=== PATIENT | male | born 1985 | race Caucasian/White ===

== ENCOUNTER 2017-05-29 08:58 | Emergency (ER) | payer OTHER, BC ==
[2017-05-29 09:18] VITALS: BP 130/60
--- NOTE | 2017-05-29 09:26 | EDM.PDOC ---
ED HPI GENERAL MEDICAL PROBLEM - General Chief Complaint: Laceration Stated Complaint: LEFT ARM, CUT , WORK[employer] Time Seen by Provider: 05/29/17 09:22 Source of Information: Reports: Patient History Limitations: Reports: No Limitations - History of Present Illness INITIAL COMMENTS - FREE TEXT/NARRATIVE: 32 yo male presents with laceration to left inner arm with knife at work. Bleeding controlled. Sensation intact. Onset: Today, Sudden Duration: Constant Location: Reports: Upper Extremity, Left Quality: Reports: Ache Severity: Mild Improves with: Reports: None Worsens with: Reports: None Left Arm Pain Score (Numeric/FACES): 3 - Related Data Allergies Allergy/AdvReac Type Severity Reaction Status Date / Time No Known Allergies Allergy Verified 05/29/17 09:18 Home Meds: Home Meds Albuterol [IJD: Ventolin HFA] 2 puff IH Q4H PRN 12/31/16 [History] Pantoprazole [ProTONIX] 40 mg PO DAILY 12/31/16 [History] Cetirizine [ZyrTEC] 10 mg PO DAILY 01/01/17 [History] Budesonide [Rhinocort Allergy] 2 spray EMIR DAILY 05/29/17 [History] ED ROS GENERAL - Review of Systems Review Of Systems: ROS reveals no pertinent complaints other than HPI. ED EXAM, SKIN/RASH Exam: See Below Exam Limited By: No Limitations General Appearance: Alert, WD/WN, No Apparent Distress Nose: Normal Inspection, Normal Mucosa, No Blood Throat/Mouth: Normal Inspection, Normal Lips, Normal Teeth, Normal Gums, Normal Oropharynx, Normal Voice, No Airway Compromise Head: Atraumatic, Normocephalic Neck: Normal Inspection, Supple, Non-Tender, Full Range of Motion Respiratory/Chest: No Respiratory Distress, Lungs Clear, Normal Breath Sounds, No Accessory Muscle Use, Chest Non-Tender Cardiovascular: Normal Peripheral Pulses, Regular Rate, Rhythm, No Edema, No Gallop, No JVD, No Murmur, No Rub Extremities: Normal Inspection, Normal Range of Motion, Non-Tender, No Pedal Edema, Normal Capillary Refill Neurological: Alert, Oriented, CN II-XII Intact, Normal Cognition, Normal Gait, No Motor/Sensory Deficits Skin: Warm, Dry, Normal Color, No Rash, Wound/Incision (2 cm laceration) Location, Skin: Upper Extremity, Left Characteristics: Linear ED SKIN PROCEDURES - Laceration/Wound Repair Left Middle Anterior Medial Proximal Arm Lac/Wound length In cm: 2 Appearance: Subcutaneous Distal NVT: Neuro & Vascular Intact Anesthetic Type: Local Local Anesthesia - Lidocaine (Xylocaine): 1% with EPI Local Anesthetic Volume: 4cc Skin Prep: Providone-Iodine (Betadine), Saline Suture Size: 3-0 # of Sutures: 3 Suture Type: Nylon Drain Placement: No Sterile Dressing Applied: None Tetanus Status Addressed: Yes Complications: No Course - Vital Signs Last Recorded V/S: Last Vital Signs Temp 97 F 05/29/17 09:09 Pulse 72 05/29/17 09:09 Resp 16 05/29/17 09:09 BP 130/60 05/29/17 09:09 Pulse Ox 99 05/29/17 09:09 - Orders/Labs/Meds Orders: Active Orders 24 hr Category Date Time Status EKG Documentation Completion [RC] STAT Care 05/29/17 09:50 Active EKG Documentation Completion [RC] STAT Care 05/29/17 11:02 Active Meds: Medications Discontinued Medications Generic Name Dose Route Start Last Admin Trade Name Jorgito PRN Reason Stop Dose Admin Lidocaine/Epinephrine 20 ml 05/29/17 09:29 05/29/17 09:32 Xylocaine 1% With Epinephrine 1:100,000 INJECT 05/29/17 09:30 20 ml ONETIME ONE Administration - Re-Assessments/Exams Free Text/Narrative Re-Assessment/Exam: 05/29/17 10:43 Pt with irregular heart rhythm. Pt states that he had a stress test in December. Called [facility] who states that he had no areas of concern with holter monitor or stress test. Has been referred to cardiology but pt states that he has not seen one. 05/29/17 11:07 FAxed EKG and called [facility]. awaiting return call. 05/29/17 11:44 Spoke with Raegan at [facility] who states that Dr. Morfin, cardiology reviewed the EKG and she discussed case with him and he feels that patient may have had a vagal response and there is nothing acutely to do. Pt will need to follow up with data mining analyst. Departure - Departure Time of Disposition: 11:45 Disposition: Home, Self-Care 01 Condition: Good Clinical Impression: Laceration, Arrhythmia, vagal - Discharge Information Instructions: Laceration Care, Adult, [id number], Bradycardia, Palpitations, [id number], Heartbeats (How the Heart Works) Forms: ED Department Discharge Additional Instructions: Follow up with your PCP in 1 week or go to clinic for suture removal. Keep wound clean and dry. You need to follow up with a data mining analyst about your irregular heart rate as soon as possible. Return for worsening symptoms. - My Orders Last 24 Hours: My Active Orders 05/29/17 09:50 EKG Documentation Completion [RC] STAT 05/29/17 11:02 EKG Documentation Completion [RC] STAT - Assessment/Plan Last 24 Hours: My Active Orders 05/29/17 09:50 EKG Documentation Completion [RC] STAT 05/29/17 11:02 EKG Documentation Completion [RC] STAT
[2017-05-29] MEDS ORDERED: Lidocaine 1% with EPINEPHrine 1:100,000 20 ML MDV INJECT ONE (09:29)
[2017-05-29] MEDS ORDERED: Bacitracin Oint 1 GM U/D Packet ONE (12:14)
[2017-05-29] MEDS ORDERED: Bacitracin Oint 1 GM U/D Packet TOP ONE (12:17)
--- NOTE | 2017-06-02 10:55 | EKG ---
05/29/2017 - CHRISTOPHER FARAH - This is the second of two 12-lead EKGs performed approximately 1 hour apart. This EKG shows a regular sinus bradycardia with an occasional PVC. Low voltage seen throughout multiple leads. Poor R-wave progression. No acute changes. No acute interval change. [facility] /[id number] MTDD
--- NOTE | 2017-06-02 11:16 | EKG ---
05/29/2017 - CHRISTOPHER FARAH - TIME: 9:57. This is the first of two 12-lead EKG. It shows a sinus arrhythmia with an average ventricular rate of 64 (59-69). Occasional PVC. Normal axis and intervals. No acute ST-segment or T-wave changes. [facility] /[id number] [facility]
== END 2017-05-29 12:21 | disposition home or self-care (01) ==
LOC: DL.ED 08:58
DX: S41.112A Laceration without foreign body of left upper arm, initial encounter (principal); I49.9 Cardiac arrhythmia, unspecified; Z79.899 Other long term (current) drug therapy; W26.0XXA Contact with knife, initial encounter; Y99.0 Civilian activity done for income or pay
CPT/HCPCS: 12001; 93005; 99284

== ENCOUNTER 2020-07-29 13:06 | Emergency (ER) | payer BC, SELFPAY ==
[2020-07-29 15:34] VITALS: BP 124/75; PULSE 73
== END 2020-07-29 14:15 | disposition left against medical advice (07) ==
LOC: DL.ED 13:06
DX: Z53.21 Procedure and treatment not carried out due to patient leaving prior to being seen by health care provider (principal)